=== PATIENT | male | born 1995 | race African-American/Black ===

== ENCOUNTER 2017-05-28 14:27 | Emergency (ER) | payer MEDICAID ==
[~2017-05-28] VITALS: Ht 175.3 cm; Wt 113.6 kg
[~2017-05-28 14:27] MED LIST: NOCURR
[2017-05-28] MEDS ORDERED: LIDOCAINE HCL 1% 10 ML VIAL INJ ONE (17:45)
[2017-05-28 19:20] VITALS: BP 141/78
== END 2017-05-28 19:50 | disposition home or self-care (01) ==
LOC: EMS 14:28
DX: S61.215A Laceration without foreign body of left ring finger without damage to nail, initial encounter (principal); W25.XXXA Contact with sharp glass, initial encounter; Y93.89 Activity, other specified; Y92.89 Other specified places as the place of occurrence of the external cause; Y99.8 Other external cause status
CPT/HCPCS: 12002; 73140; 99284; J3490